=== PATIENT | male | born 1955 | race Caucasian/White ===

== ENCOUNTER 2023-06-07 13:44 | Outpatient (REF) | payer OTHER, SELFPAY | END 2023-06-07 13:45 | disposition home or self-care (01) | LOC: HO.MAMMO 13:44 | PROVIDERS: PCP Internal Medicine; Visit Provider Internal Medicine | DX: Z13.820 Encounter for screening for osteoporosis (principal); Z79.52 Long term (current) use of systemic steroids | CPT/HCPCS: 77080 ==

== ENCOUNTER 2023-07-05 08:07 | Outpatient (REF) | payer OTHER, SELFPAY ==
--- NOTE | ~2023-07-05 | XR_ITS ---
EXAMINATION: XR SHOULDER, RIGHT CLINICAL INFORMATION: Pain COMPARISON: None available. TECHNIQUE: Three views of the right shoulder. FINDINGS: No acute visible fracture or dislocation. Degenerative arthropathy of the glenohumeral and acromioclavicular joint. Joint space alignment are otherwise maintained. Soft tissues are unremarkable. Visualized portions of the right chest are unremarkable. XR/XR shoulder RT min 2V IMPRESSION: 1. No acute visible fracture or dislocation. 2. Degenerative arthropathy of the glenohumeral and acromioclavicular joint.
== END 2023-07-05 08:08 | disposition home or self-care (01) ==
LOC: HO.HOSX 08:07
PROVIDERS: Visit Provider Physician Assistant
DX: M75.81 Other shoulder lesions, right shoulder (principal); M75.82 Other shoulder lesions, left shoulder; M70.62 Trochanteric bursitis, left hip
CPT/HCPCS: 73030; 99202

== ENCOUNTER 2023-07-05 10:53 | Outpatient (AMB) | payer OTHER, SELFPAY ==
--- NOTE | 2023-07-05 10:54 | A.OFFVIS_ITS ---
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 Patient reports intermittent pain for about 10-12 years ago. He has attended PT with no recollection if this had helped. Currently he has an increase of pain with lifting arms above head. Finds somre relief with ibuprofen. States about 20-30 years ago he believes his left shoulder was dislocated and had surgery. Patient reports hip pain, he has a cortisone injection about a year ago at his previous orthopedics in [place]. 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 He states he has intermittent pain in his bilateral shoulders which is aggravated with overhead reaching. He finds mild relief with ibuprofen. He had undergone physical therapy in the past which he is unsure if provided him relief. He has a history of left shoulder dislocation and had undergone surgery about 20 years ago. He also reports he has bilateral hip pain which is aggravated with ambulation and sleeping on his sides. His left hip pain is worse than his right hip. He also c/o groin pain with riding bike. [facility] Surgical History (Updated 07/05/23 @ 11:08 by TAMY Cabezas) History of carpal tunnel release Social History (Updated 07/05/23 @ 11:09 by TAMY Cabezas) Patient Tobacco Use Status: Never used Tobacco Current occupational status: retired Review of Systems Const All systems reviewed & are unremarkable except as noted in HPI and below Physical Exam Vital Signs: BMI result Body Mass Index 25.1 Const General: cooperative, healthy appearing, comfortable, no acute distress, well developed and alert Orientation/consciousness: patient oriented x3 HEENT Head: Yes normal to inspection, Yes normocephalic and Yes atraumatic Eyes General: appearance normal, both eyes and all related structures Resp Effort & Inspection: normal respiratory effort and able to speak in complete sentences Cardio Rate: regular rate Peripheral pulses: Peripheral pulses 2+ throughout GI Palpation (GI): Soft to palpation Skin Lesions: no lesions Rashes: no rashes Neuro General: patient oriented x3 Extrem Other: Bilateral shoulder normal to inspection. Tenderness over the bicipital groove and along the deltoid region of the shoulder. Forward flexion to 175, external rotation to 90, internal rotation to S1. 5/5 RTC strength. Positive Rowland and cross body abduction. NVI. Bilateral hip: Normal to inspection. No pain with ROM of the hip. Pain along the greater trochanter. No pain with hip flexion or abduction. tenderness along the SI joint, SLR. NVI. Results Reviewed Results Reviewed: Xrays were obtained in the office today and personally reviewed by me of the right shoulder show acj oa Left shoulder xrays ordered from outside facility show mild subacromial spurring , evidence of post op changes Assessment & Plan Assessment & Plan (1) Trochanteric bursitis, left hip: Code(s): M70.62 - Trochanteric bursitis, left hip (2) Tendonitis of both rotator cuffs: Code(s): M75.81 - Other shoulder lesions, right shoulder; M75.82 - Other shoulder lesions, left shoulder Plan We discussed options which include PT, NSAIDs and injections. The patient will defer on the injection today and proceed with PT and NSAIDs. He will contact me before he travels to [facility] if he would like to proceed with a left hip injection, otherwise as needed. Orders: Orders PT Evaluation and Treatment Today M70.62 - Trochanteric bursitis, left hip, M75.81 - Other shoulder lesions, right shoulder, M75.82 - Other shoulder lesions, left shoulder XR shoulder RT min 2V Today M25.511 - Pain in right shoulder Patient Instructions: Scribed for Quoc Cook PA-C, by Kane Avila certified medical aide, on 07/05/2023 at 11:00 AM EST. IQuoc PA-C, have personally reviewed and agree with the information entered by the scribe. Coding Level of Care Code New Pt Level 3 (66354) Diagnoses Trochanteric bursitis, left hip M70.62 Tendonitis of both rotator cuffs M75.81; M75.82
[2023-07-05 11:06] VITALS: BMI 25.1
== END 2023-07-05 12:12 | disposition home or self-care (01) ==
PROVIDERS: PCP Internal Medicine; Visit Provider Physician Assistant
DX: M70.62 Trochanteric bursitis, left hip (principal); M75.81 Other shoulder lesions, right shoulder; M75.82 Other shoulder lesions, left shoulder
CPT/HCPCS: 99203

== ENCOUNTER 2023-07-24 07:23 | Day surgery (SDC) | payer MEDICARE, SELFPAY ==
[2023-07-20 09:56] VITALS: BMI 25.8
--- NOTE | 2023-07-21 09:25 | HO.ANESPROP2 ---
Documented by User: Jada Campos NP 07/21/23 09:25 HPI - Anesthesia Eval Consult details Narrative: 67yo M for Upper Endoscopy and Colonoscopy PMFSH Active Problems Active Problems: All Active Problems (Updated 07/20/23 @ 09:55 by Wendy Sanabria, JOSE) Tendonitis of both rotator cuffs (Acute) Trochanteric bursitis, left hip (Acute) Past Medical History Medical History Hx of sinus bradycardia GERD (gastroesophageal reflux disease) Environmental allergies Migraine ILD (interstitial lung disease) Hypothyroidism Long COVID Renal stones Surgical History Surgical History H/O knee surgery Hx of shoulder surgery H/O left inguinal hernia repair History of carpal tunnel release Social History Social History Patient Tobacco Use Status: Never used Tobacco Are you DNR?: No Advance Directives: No Advance Directives Information Provided: Yes Nutrition Risks: No Nutritional Risk Current occupational status: retired [employer] Allergies Allergy/AdvReac Type Severity Reaction Status Date / Time No Known Allergies Allergy Verified 07/05/23 11:07 Home Medications Medication Instructions Recorded Confirmed Last Taken Type levothyroxine 50 mcg tablet 50 mcg PO DAILY 07/05/23 07/19/23 Unknown History ascorbic acid (vitamin C) 500 mg 250 mg PO DAILY 07/19/23 07/19/23 Unknown History tablet (Vitamin C) cholecalciferol (vitamin D3) 50 50 mcg PO DAILY 07/19/23 07/19/23 Unknown History mcg (2,000 unit) capsule (Vitamin D3) docosahexaenoic acid (dha)-epa 120 1 cap PO DAILY 07/19/23 07/19/23 Unknown History mg-180 mg capsule (Fish Oil) fluticasone propionate 50 1 spray intranasal DAILY 07/19/23 07/19/23 Unknown History mcg/actuation nasal spray,suspension tumeric 100 mg-julian 150 mg-olive 1 cap PO DAILY 07/19/23 07/19/23 Unknown History 50 mg-oreg 150 mg-caprylate capsule vitamin B complex 1 tab PO DAILY 07/19/23 07/19/23 Unknown History zinc acetate 25 mg (zinc) capsule 25 mg PO DAILY 07/19/23 07/19/23 Unknown History Exam Height,Weight and Vital Signs: Height 5 ft 9 in Weight 79.379 kg Assessment and Plan Assessment Anesthesia Assessment: Chart Reviewed Documented by User: Antonina Early MD 07/24/23 09:00 PMFSH Active Problems Active Problems: All Active Problems (Updated 07/24/23 @ 08:37 by Antonina Early MD) Tendonitis of both rotator cuffs (Acute) Trochanteric bursitis, left hip (Acute) Past Medical History Medical History Hx of sinus bradycardia GERD (gastroesophageal reflux disease) Environmental allergies Migraine ILD (interstitial lung disease) Hypothyroidism Long COVID Renal stones Family History Family history of problems with anesthesia: No Surgical History Surgical History H/O knee surgery Hx of shoulder surgery H/O left inguinal hernia repair History of carpal tunnel release History of Problems with Anesthesia: No Social History Social History Patient Tobacco Use Status: Never used Tobacco Are you DNR?: No Advance Directives: No Advance Directives Information Provided: Yes Nutrition Risks: No Nutritional Risk Current occupational status: retired [employer] Allergies Allergy/AdvReac Type Severity Reaction Status Date / Time No Known Allergies Allergy Verified 07/05/23 11:07 Home Medications Medication Instructions Recorded Confirmed Last Taken Type levothyroxine 50 mcg tablet 50 mcg PO DAILY 07/05/23 07/19/23 Unknown History ascorbic acid (vitamin C) 500 mg 250 mg PO DAILY 07/19/23 07/19/23 Unknown History tablet (Vitamin C) cholecalciferol (vitamin D3) 50 50 mcg PO DAILY 07/19/23 07/19/23 Unknown History mcg (2,000 unit) capsule (Vitamin D3) docosahexaenoic acid (dha)-epa 120 1 cap PO DAILY 07/19/23 07/19/23 Unknown History mg-180 mg capsule (Fish Oil) fluticasone propionate 50 1 spray intranasal DAILY 07/19/23 07/19/23 Unknown History mcg/actuation nasal spray,suspension tumeric 100 mg-julian 150 mg-olive 1 cap PO DAILY 07/19/23 07/19/23 Unknown History 50 mg-oreg 150 mg-caprylate capsule vitamin B complex 1 tab PO DAILY 07/19/23 07/19/23 Unknown History zinc acetate 25 mg (zinc) capsule 25 mg PO DAILY 07/19/23 07/19/23 Unknown History Exam Height,Weight and Vital Signs: Height 5 ft 9 in Weight 79.379 kg Vital Signs Temp Pulse Resp BP Pulse Ox O2 Del Method 07/24/23 07:56 97.3 F 46 L 18 146/78 H 98 Room Air Airway Mallampati Class: II TM Dist: >3cm Neck ROM: Full Loose/Missing/Broken Teeth: No (Denies broken, loose, missing teeth) Heart: RRR Lungs: CTAB Assessment and Plan Assessment Anesthesia Assessment: Anesthesia Plan Discussed Final Anesthetic Review Family History of Problems with Anesthesia: No History of Problems with Anesthesia: No NPO: Yes ASA Class: III Final Preanesthetic Review: No Changes in Pt Med Stat, Meds/Allgs Chart Reviewed, Consent Obtained/Reviewed and Anes Risks/Benef Reviewed Patient Risk: Intermediate Procedure Risk: Low Assessment/Block/Sedation in SS: Assess/Block/Sedation-SS Anesthetic Plan Anesthetic Plan: MAC: Disposition: Standard PACU
--- OUTSIDE RECORDS SUMMARY | 2023-07-24 07:24 | XMS_ITS | Patient Health Record ---
Author Name Unknown Organization [facility] Address [address] [place] [id number] Care Team Providers Care Development Rep Name Role Phone Robinson Chong MD Primary Care Provider UnavailYasir Mccarthy Unavailable [phone] ALLERGIES No Known Allergies REASON FOR REFERRAL No Information MEDICATIONS Medication SIG (Take, Route, Frequency, Duration) Notes Start Date End Date Status Fish Oil Active Zinc Active Vitamin C Active Vitamin B Complex Ac tive Turmeric Active Vitamin D3 Active Flonase Active Levothyroxine Sodium 50 MCG TAKE 1 TABLE T BY MOUTH EVERY DAY Oral for 90 Active SOCIAL HISTORY Tobacco Use: Social History Observation Description Date Details (start date - stop date) Never Smoker NA - NA Sex Assigned At : Social History Observation Description Sex Assigned At Unknown Tobacco Use/Smoking Question Answer Notes Patient is a nonsmoker Alcohol Screen Question Answer Notes Did you have a drink containing alcohol in the p ast year? No Points 0 Interpretation Negative PROBLEMS Problem Type ICD Code Onset Dates Problem Status W/U Status Risk SNOMED Code Notes Problem Gastroesophageal reflux disease, unspecified whether esophagitis present (K21.9) Active confirmed [id number] Problem Colon cancer screening (Z12.11) Active confirmed [id number] Encounters Encounter Location Date Provider Diagnosis [facility] [address], [place] [id number] 07/24/2023 Yasir Palomino [facility] [address] [place] [id number] 04/28/2023 Yasir Palomino Gastroesophageal ref lux disease, unspecified whether esophagitis present K21.9 and Colon cancer screening Z12.11 [facility] [address] [place] [phone] 03/01/2023 Yasir Palomino ASSESSMENTS Encounter Date Diagnosis Assessment Notes Treatment Notes Treatment Clinical Notes 04/28/2023 Gastroesophageal ref lux disease, unspecified whether esophagitis present (ICD-10 - K21.9) Stop fish oil and Turmeric for 1 week before the procedures 04/28/2023 Colon cancer screeni ng (ICD-10 - Z12.11) PLAN OF TREATMENT Future Test Test Name Order Date UPPER GI ENDOSCOPY 04/28/2023 COLONOSCOPY 04/28/2023 Next Appt Details Provider Name:Yasir Palomino , 07/24/2023 08:30:00 AM, [address] [place] [address] , [place], [place], [phone], Insurance Providers Payer Name Payer Address Payer Phone Subscriber Number Group Number Insured Name Patient Relationship to Insured Coverage Start Date Coverage End Date [facility] [address] Attn Claims [place]ATH[place]re[place] [id number] CATALINO MARKHAM Self - patient is the insured MEDICARE OF [place] [address] [place] [address] [id number] CATALINO MARKHAM Self - patient is the insured MEDICAL (GENERAL) HISTORY Medical History History ICD Code Allergies Kidney stones Long COVID-treated with a long course of prednisone-resolved Hypothyroidism Denies [place],DM,CVA,renal disease TIA vs. Migraine-resolved Interstitial lung disease- mild 3 Negative Cologuards Surgical History Surgery Date(Month/Year) Right carpal tunnel release 03/2023 Left hernia inguinal Left shoulder left Bilateral knees Ulnar nerve right elbow
[2023-07-24 07:52] VITALS: BMI 25.5
[2023-07-24 07:56] VITALS: BP 146/78; PULSE 46; RESP 18; TEMP 36.3; O2SAT 98
[2023-07-24] MEDS: Lactated Ringers 1,000 ML 100 ML IVCONT ×2 (08:12)
[2023-07-24] MEDS: Lactated Ringers 1,000 ML 50 ML IVCONT (08:15)
[2023-07-24 09:59] VITALS: BP 114/61; PULSE 46; RESP 14; TEMP 36.3; O2SAT 97
--- NOTE | 2023-07-24 10:01 | P.BOP_ITS ---
Brief Operative Note Date of Service: 07/24/23 Pre-op diagnosis: GERD, Screening Post-op diagnosis: other (Minimal hiatal hernia, Colon polyp) Procedure: EGD, Colonoscopy to the cecum and TI with bx/removal of polyp Surgeon: Yasir Palomino MD Anesthesia: MAC Was an Php Mysql Developer used for this Procedure?: No Estimated blood loss (mL): 2.0 Pathology: other (A. Transverse colon polyp) Condition: stable Disposition: PACU
[2023-07-24 10:13] VITALS: BP 106/78; PULSE 46; RESP 16; TEMP 36.2; O2SAT 100
[2023-07-24 10:29] VITALS: BP 133/72; PULSE 45; RESP 16; TEMP 36.2; O2SAT 100
--- NOTE | 2023-07-24 11:03 | OP_ITS ---
DATE OF SERVICE: 07/24/2023 SURGEON: Yasir Palomino MD INDICATIONS: The patient presents for evaluation of gastroesophageal reflux and colorectal cancer screening. Full consent has been obtained from him for both procedures, including risks of bleeding and perforation. PREOPERATIVE DIAGNOSIS: Gastroesophageal reflux, colorectal cancer screening. POSTOPERATIVE DIAGNOSIS: PROCEDURE PERFORMED: Esophagogastroduodenoscopy and colonoscopy to the cecum and terminal ileum with biopsy and removal of polyp. ESTIMATED BLOOD LOSS: COMPLICATIONS: ANESTHESIA: Monitored anesthesia care. ASSISTANTS: SPECIMENS: POSTOPERATIVE DIAGNOSES: Gastroesophageal reflux, colorectal cancer screening, minimal hiatal hernia, small colon polyp, diverticulosis, and internal hemorrhoids. DESCRIPTION OF PROCEDURE: The patient was placed in the left lateral decubitus position. The Olympus video gastroscope was passed in the posterior oropharynx and upper esophagus under direct vision. The scope was passed slowly to the distal esophagus. The gastroesophageal junction appeared normal at 39 cm. There was no sign of any esophagitis nor Griffin's esophagus. The scope entered the stomach. There was a minimal if any hiatal hernia. The scope was advanced to the pylorus, and the duodenum was cannulated to the descending portion. The duodenum including the bulb appeared normal without mass or ulceration. The scope was withdrawn back to the stomach. The gastric antrum and body appeared normal with good peristalsis. The scope was retroflexed visualizing the proximal stomach carefully, which appeared normal, without any sign of mass or ulceration. The scope was straightened and withdrawn back in the esophagus. The esophageal mucosa appeared normal. The scope was withdrawn from the patient. He was turned around for the colonoscopy. The digital rectal exam revealed no abnormalities. The Olympus video pediatric colonoscope was entered into the rectum and advanced easily to the cecum. Once in the cecum, I did identify normal-appearing cecal pouch with appendiceal orifice and a normal-appearing ileocecal valve. The terminal ileum was cannulated and appeared normal. The scope was withdrawn back in the colon. The entire cecum and ileocecal valve appeared normal. The scope was slowly withdrawn assessing all mucosal surfaces carefully. Preparation was excellent. In the transverse colon was an approximately 3 mm polyp, which was biopsied and completely removed with a cold biopsy forceps. I did not visualize any other polyps, colitis, nor angiodysplasia. There was a mild amount of sigmoid diverticulosis. In the rectum, scope was retroflexed visualizing internal hemorrhoids but no other pathology. The rectal mucosa appeared normal. Scope was straightened and withdrawn from the patient. He tolerated the procedures well and was returned to the recovery area in stable condition. IMPRESSION: 1. Small colon polyp. 2. Diverticulosis. 3. Internal hemorrhoids. 4. Minimal hiatal hernia. PLAN: The results of the biopsy will be checked. If the colon polyp is a tubular adenoma, I would recommend a followup coloscopy in 5 years. If it is only hyperplastic, I would recommend a followup coloscopy in 10 years. He will use p.r.n. medicine for his reflux as he is presently doing as this works well for him. I do not think he needs to be on any chronic acid suppression at this time, but he was advised to call if his symptoms worsen in that regard. MD MAYRA Romeo/THAI / [phone] MTDD
== END 2023-07-24 11:15 | disposition home or self-care (01) ==
PROVIDERS: PCP Internal Medicine; Visit Provider Internal Medicine
PROC: (CPT 43235; principal; 2023-07-24 08:30)
DX: K21.9 Gastro-esophageal reflux disease without esophagitis (principal); Z12.11 Encounter for screening for malignant neoplasm of colon; K63.5 Polyp of colon; K57.30 Diverticulosis of large intestine without perforation or abscess without bleeding; K64.8 Other hemorrhoids; E03.9 Hypothyroidism, unspecified; J84.9 Interstitial pulmonary disease, unspecified; Z87.442 Personal history of urinary calculi
CPT/HCPCS: 43235; 45380; 88305; J2704

== ENCOUNTER 2023-08-09 08:00 | Outpatient (RCR) | payer MEDICARE, SELFPAY | END 2023-09-20 11:42 | disposition home or self-care (01) | LOC: HO.PT 08:00 | PROVIDERS: PCP Internal Medicine; Visit Provider Physician Assistant | DX: M70.62 Trochanteric bursitis, left hip (principal); M75.81 Other shoulder lesions, right shoulder; M75.82 Other shoulder lesions, left shoulder | CPT/HCPCS: 97110; 97140; 97161 ==

== ENCOUNTER 2023-12-04 12:39 | Outpatient (REF) | payer MEDICARE, SELFPAY ==
--- NOTE | ~2023-12-04 | XR_ITS ---
EXAMINATION: XR ABDOMEN KUB CLINICAL INDICATION: Left-sided pain with question kidney stone COMPARISON: Lumbar spine 12/22/2021 TECHNIQUE: AP view of the abdomen. FINDINGS: The bowel gas pattern is normal with no evidence of ileus or obstruction. No unusual soft tissue calcifications are noted. No definite renal calculi are seen. Phleboliths are noted in the pelvis. Mild degenerative changes are present in the spine with minimal scoliosis convex to right.. XR/XR KUB IMPRESSION: No evidence of nephrolithiasis.
== END 2023-12-04 12:40 | disposition home or self-care (01) ==
LOC: HO.HMGCX 12:39
PROVIDERS: PCP Internal Medicine; Visit Provider Internal Medicine
DX: R10.9 Unspecified abdominal pain (principal)
CPT/HCPCS: 74018

== ENCOUNTER 2024-04-10 08:29 | Outpatient (REF) | payer MEDICARE, SELFPAY ==
--- NOTE | ~2024-04-10 | XR_ITS ---
EXAMINATION: XR KNEE, LEFT CLINICAL INFORMATION: Left knee pain. COMPARISON: 12/22/2021. TECHNIQUE: Three views of the left knee. FINDINGS: There is no fracture, dislocation, or focal bony abnormality. There has been prior ACL repair, with surgical anchor screws in place, well seated without complication. Medial and lateral compartments largely preserved. Patellofemoral compartment partially preserved. Mild superior enthesopathy of the patella. Minimal spurring of the tibial spines. No evidence of joint effusion. There are vascular calcifications. Soft tissues otherwise normal. XR/XR knee LT 3V IMPRESSION: No acute findings left knee. ACL repair without complication. Electronically signed by: Franki Mendoza MD 05/09/2024 01:04 PM EDT
== END 2024-04-10 08:30 | disposition home or self-care (01) ==
LOC: HO.HOSX 08:29
PROVIDERS: Visit Provider Orthopaedic Surgery
DX: M25.562 Pain in left knee (principal); Z98.890 Other specified postprocedural states
CPT/HCPCS: 73562; 99212

== ENCOUNTER 2024-04-10 08:34 | Outpatient (AMB) | payer MEDICARE, SELFPAY ==
--- NOTE | 2024-04-10 08:38 | A.OFFVIS_ITS ---
Intake Visit Reasons: New Prob - left knee pain Intake Note: Cristian is a 68 year old male who presents with complaints of intermittent discomfort in his left knee. The patient states that he underwent left knee anterior cruciate ligament reconstructive surgery in 2003 after suffering an injury while playing soccer. The patient states that he recently began Thera- Band exercises for his knees and hips. The exercises seem to aggravate his left knee. He has recently stopped the exercises which have significantly improved his knee discomfort. He reports minimal discomfort at this time. He denies any locking or giving way. Allergies No Known Allergies Allergy (Verified 04/10/24 08:39) Medication List - Last Reconciled 04/10/24 by Ted August MD ascorbic acid (vitamin C) (Vitamin C) 250 mg PO DAILY cholecalciferol (vitamin D3) (Vitamin D3) 50 mcg PO DAILY docosahexaenoic acid-epa 120-180 mg (Fish Oil) 1 cap PO DAILY fluticasone propionate 50 mcg/actuation 1 spray intranasal DAILY levothyroxine 50 mcg PO DAILY xnccjhog-teow-wdyyz-oreg-capry 100 mg-150 mg- 50 mg-150 mg 1 cap PO DAILY vitamin B complex 1 tab PO DAILY PFSH Medical History Hx of sinus bradycardia GERD (gastroesophageal reflux disease) Environmental allergies Migraine ILD (interstitial lung disease) Hypothyroidism Long COVID Renal stones Surgical History H/O knee surgery Hx of shoulder surgery H/O left inguinal hernia repair History of carpal tunnel release Social History Patient Tobacco Use Status: Never used Tobacco Current occupational status: retired Physical Exam Const Other: Well-nourished well-developed very friendly male awake alert and oriented x3 in no acute distress Extrem Other: Bilateral lower extremity examination shows good capillary refill, no skin lesions noted, normal sensation light touch Left knee examination shows a minimal effusion, minimal crepitus with range of motion, tenderness along his medial joint line, positive Ofe's test, no instability Results Reviewed Results Reviewed: X-rays of the patient's left knee show mild joint space narrowing, 2 screws within the distal femur and 1 screw within the proximal tibia consistent with prior anterior cruciate ligament reconstruction, no acute bony abnormalities Assessment & Plan Assessment & Plan (1) Left knee pain: Code(s): M25.562 - Pain in left knee Category: Medical Plan Mr. Marsh presents with intermittent left knee discomfort due to early degenerative joint disease as well as possible tearing of his medial meniscus. I had a lengthy discussion with the patient regarding the treatment options. At this point the patient's symptoms are improving with activity modifications. We will hold off on a cortisone injection. He will continue with his home exercise program. He will follow up with me on an as-needed basis should his symptoms worsen in any way. Feel free to call me at any time should questions regarding his orthopedic management arise. I spent 22 minutes in reviewing the patient's records and imaging studies, seeing the patient and documenting in the medical record. Orders: Orders XR knee LT 3V Today M25.562 - Pain in left knee Coding Level of Care Code Est Pt Level 3 (76791) Diagnoses Left knee pain M25.562
== END 2024-04-10 09:08 | disposition home or self-care (01) ==
PROVIDERS: PCP Internal Medicine; Visit Provider Orthopaedic Surgery
DX: M17.12 Unilateral primary osteoarthritis, left knee (principal)
CPT/HCPCS: 99213

== ENCOUNTER → 2024-04-10 08:35 | Outpatient (BNV) | payer MEDICARE, SELFPAY | PROVIDERS: Visit Provider Radiology Diagnostic Radiology | DX: M25.562 Pain in left knee (principal) | CPT/HCPCS: 73562 ==

== ENCOUNTER 2024-11-29 08:00 | Outpatient (RCR) | payer OTHER, SELFPAY | END 2025-01-03 08:30 | disposition home or self-care (01) | LOC: HO.PT 08:00 | PROVIDERS: PCP Internal Medicine; Visit Provider Otolaryngology | DX: H81.4 Vertigo of central origin (principal) | CPT/HCPCS: 95992; 97112; 97161 ==